=== PATIENT | female | born 1990 | race Caucasian/White ===

== ENCOUNTER 2022-11-23 03:06 | Emergency (ER) | payer SELFPAY ==
[~2022-11-23] VITALS: Ht 154.9 cm; Wt 81.6 kg
--- NOTE | 2022-11-23 03:25 | NUR ---
TO BED AMBULATORY
--- NOTE | 2022-11-23 03:33 | NUR ---
REPORT FR SALVADOR RN,PER IN REPORT SHE FEELS VERY ANXIOUS AFTER TAKING CBD, TACHY , NO CP
[2022-11-23 03:37] VITALS: BP 137/64
--- NOTE | 2022-11-23 03:41 | NUR ---
DR CHRISTIAN AT TO EXAMINE PT
[2022-11-23] MEDS ORDERED: LORazepam 1 MG TAB PO ONE (03:45)
[2022-11-23] MEDS ORDERED: ATA25 PO (03:47)
--- NOTE | 2022-11-23 04:00 | NUR ---
Patient discharged with v/s stable. Written and verbal after care instructions given and explained. Patient alert, oriented and verbalized understanding of instructions. Ambulatory with to home. All questions addressed prior to discharge. ID band removed. Patient advised to follow up with PMD. Rx of ATARAX given. Patient educated on indication of medication including possible reaction and side effects. Opportunity to ask questions provided and answered.
== END 2022-11-23 04:00 | disposition home or self-care (01) ==
LOC: MED 03:06
DX: F41.9 Anxiety disorder, unspecified (principal); T45.1X5A Adverse effect of antineoplastic and immunosuppressive drugs, initial encounter; F12.90 Cannabis use, unspecified, uncomplicated; Y92.89 Other specified places as the place of occurrence of the external cause
CPT/HCPCS: 99283